=== PATIENT | female | born 1985 | race African-American/Black ===

== ENCOUNTER 2020-06-24 16:07 | Emergency (ER) | payer BC, SELFPAY ==
--- NOTE | ~2020-06-24 | XR_ITS ---
XR chest 2V DATE: 06/24/2020 16:55 INDICATION: Midsternal chest pain for one day. Smoker. TECHNIQUE: PA and lateral views COMPARISON: None FINDINGS: Normal heart size. No hilar or mediastinal enlargement. No pulmonary infiltrate or consolidation, pleural effusion or pulmonary vascular congestion or pneumo thorax. IMPRESSION: No active cardiopulmonary disease Reviewed, dictated and finalized at location A. R SECURITY CONSULTANT
--- NOTE | 2020-06-24 16:08 | ECG_ITS ---
Measurements Intervals [place] Rate: 99 P: 59 DE: 145 QRS: 32 QRSD: 86 T: 18 QT: 356 QTc: 458 Interpretive Statements SINUS RHYTHM ST ELEVATION IN DIFFUSE LEADS- CONSIDER PERICARDITIS OR EARLY REPOLARIZATION ABNORMALITY BASELINE WANDER- I, II, III, AVF ABNORMAL ECG Electronically Signed On 06-24-2020 16:32:03 TRAINING ADMINISTRATOR by Callum Katz D.O.
[2020-06-24 16:09] VITALS: BP 138/87; PULSE 100; RESP 20; TEMP 36.3; O2SAT 98
[2020-06-24 16:38] LABS: Basophils Absolute Auto 0.1 K/mm3 (0.0-0.1); Basophils Percent Auto 0.7 % (0.2-1.2); Eosinophils Absolute Auto 0.2 K/mm3 (0-0.3); Eosinophils Percent Auto 2.1 % (0-4.4); Hematocrit 43.3 % (37.0-47.0); Hemoglobin 14.3 g/dL (12.0-15.0); Immature Granulocyte Absolute 0.04 K/mm3 (0.00-0.031); Immature Granulocyte Percent A 0.4 % (0-0.5); Lymphocytes Absolute Auto 2.25 K/mm3 (0.9-3.2); Mean Corpuscular Hemoglobin 29.5 pg (26-34); Mean Corpuscular Volume 89.5 fl (80-100); Mean Platelet Volume 9.6 fl (7.4-10.4); Monocytes Absolute Auto 0.5 K/mm3 (0.1-0.6); Neutrophils Absolute Auto 5.9 K/mm3 (1.3-6.7); Neutrophils Percent Auto 65.8 % (45.5-73.1); Platelet Count Result 308 k/mm3 (150-375); Red Blood Count 4.84 M/mm3 (4.2-5.4); Red Cell Distribution Width 13.1 % (11.5-14.5)
[2020-06-24 16:49] LABS: Anion Gap 12 mmol/L (8-16); Blood Urea Nitrogen 7 mg/dL (7-17); Calcium 9.3 mg/dL (8.4-10.2); Carbon Dioxide 24 mmol/L (22-30); Chloride 103 mmol/L (98-107); Estimated CRCL calculation 128 ml/min; Estimated Glomerular Filt Rate > 60; Glucose 246 mg/dL (65-105); Sodium 139 mmol/L (137-145)
[2020-06-24 16:57] LABS: INR 0.9; Partial Thromboplastin Time 25.5 SECONDS (22.3-36.8); Prothrombin Time 12.9 Seconds (11.1-14.7)
[2020-06-24 17:01] LABS: Troponin I < 0.012 ng/mL (0.000-0.034)
--- NOTE | 2020-06-24 17:05 | ED.CHESTPAIN ---
HPI - Chest Pain General Chief Complaint: Chest Pain Stated Complaint: SOB Time Seen by Provider: 06/24/20 16:52 Source: patient Mode of arrival: ambulatory Limitations: no limitations History of Present Illness HPI narrative: This is a 35 year old female with history of DM, smoking who presents for evaluation midsternal chest pain. This pain started suddenly at noon today while she was watching TV. She describes pain as tightness and sharp. She has sharp pain when she takes a deep breath. She states pain radiates to her back and it is associated with nausea. She is sob because it hurts to take a deep breath. she denies URI symptoms, cough or fever. She denies vomiting or diarrhea but states she feels like diarrhea would help her feel better. She denies history of signs of DVT. Related Data Home Medications Medication Instructions Recorded Confirmed empagliflozin [Jardiance] mg 06/24/20 levothyroxine 06/24/20 liraglutide [Victoza 2-[place]] mg SUBCUT 06/24/20 metformin mg PO 06/24/20 rosuvastatin mg 06/24/20 spironolactone 06/24/20 Allergies Allergy/AdvReac Type Severity Reaction Status Date / Time No Known Allergies Allergy Verified 06/24/20 18:43 Review of Systems Review of Systems: All systems reviewed & are unremarkable except as noted in HPI and below Constitutional: Constitutional: Denies chills and Denies fever(s) ENT: Denies dizziness and Denies nasal congestion Cardiovascular: Cardiovascular: Reports chest pain Respiratory: Respiratory: Denies cough, Reports dyspnea and Denies wheezing Gastrointestinal: Gastrointestinal: Reports abdominal pain, Denies diarrhea, Reports nausea and Denies vomiting [facility] Past Medical History Medical History (Updated 06/25/20 @ 00:00 by [facility] [place]) Diabetes mellitus Surgical History Surgical History (Updated 06/24/20 @ 17:07 by Yvonne Reyes MD) H/O thyroidectomy Social History Social History (Updated 06/24/20 @ 17:07 by Yvonne Reyes MD) Smoking packs per day: 0.5 Smoking cigarettes per day: 10.0 Smoking status: Current every day smoker Alcohol intake: never Substance use type: marijuana Gender identity (if verbalized by the patient): Female Exam Const: General: no acute distress and alert Orientation/consciousness: patient oriented x3 Eyes: EOM: EOMs intact bilaterally Resp: Effort & Inspection: normal respiratory effort and no retractions Auscultation: clear to auscultation bilaterally Cardio: Rate: regular rate Rhythm: regular rhythm Heart sounds: no murmurs GI: GI Palp: Yes Soft to palpation, Yes Tenderness to palpation present (GI) (epigastric) and Yes Guarding due to palpation present (GI) Auscultation: normal bowel sounds Back/Spine/Pelvis: Back: no CVA tenderness Skin: General skin exam: normal color Rashes: no rashes Neuro: General: patient oriented x3 and moves all extremities Course Reevaluation(s) Reevaluation #1: Patient states that her chest pain has resolved. She does not feel the pain any more. I Discussed labs abnormality. She is awaiting a 3 hour troponin and she will be treated for a UTI. Date: 06/24/20 Time: 19:15 Vital Signs Vital signs: Vital Signs Temperature 97.4 F L 06/24/20 16:09 Pulse Rate 100 06/24/20 16:09 Respiratory Rate 20 06/24/20 16:09 Blood Pressure 138/87 06/24/20 16:09 Pulse Oximetry 98 06/24/20 16:09 Temperature 97.8 F 06/24/20 20:32 Pulse Rate 94 06/24/20 20:32 Respiratory Rate 16 06/24/20 20:32 Blood Pressure 144/92 H 06/24/20 20:32 Pulse Oximetry 98 06/24/20 20:32 MDM - Chest Pain Lab Data Attestation: I reviewed the patient's lab results. Result diagrams: 06/24/20 16:33 06/24/20 16:33 Labs: Lab Results 06/24/20 06/24/20 06/24/20 Range/Units 16:33 16:33 16:33 WBC 9.0 (4.5-10.0) K/mm3 RBC 4.84 (4.2-5.4) M/mm3 Hgb 14.3 (12.0-15.0) g/dL Hct 4
[2020-06-24 18:09] LABS: D Dimer 0.32 ug/mL (<0.48)
[2020-06-24 18:10] LABS: Alanine Aminotransferase 66 U/L (4-35); Albumin Level 4.6 g/dL (3.5-5.1); Alkaline Phosphatase 140 U/L (38-126); Aspartate Amino Transferase 158 U/L (14-36); Bilirubin,Total 1.3 mg/dL (0.2-1.3); CRP 1.9 mg/dL (<1.0); Lipase 188 U/L (23-300)
[2020-06-24] MEDS: KETOROLAC 30 MG/ML VIAL (*BKC) IV PUSH (18:40)
[2020-06-24] MEDS: ONDANSETRON INJ 4 MG/2 ML VIAL IV PUSH (18:40)
[2020-06-24 18:45] VITALS: BP 139/90; PULSE 94; RESP 18; TEMP 36.8; O2SAT 99
[2020-06-24 18:48] LABS: Add Urine Microscopic? YES; Appearance Urine Cloudy (Clear); Bilirubin Urine Negative (Negative); Blood Urine Negative (Negative); Color Urine Yellow (Yellow); Glucose Urine UA 3+ mg/dL (Negative); Ketones Urine 1+ mg/dL (Negative); Leukocyte Esterase Ur Trace LEU/UL (Negative); Mucus Urine Rare /lpf; Nitrate Urine Positive (Negative); Protein Urine Negative (Negative); RBC Urine 0-2 /hpf (0-2); Squamous Epithelial Cell Urine Moderate /hpf (Few); Urobilinogen Urine Negative mg/dL (<2.0); WBC Urine 31-50 /hpf
[2020-06-24 19:00] LABS: Specific Grav Ur 1.036 (1.001-1.035)
[2020-06-24] MEDS: CEPHALEXIN 500 MG CAPSULE PO (19:50)
[2020-06-24 19:52] VITALS: BP 138/87; PULSE 86; RESP 16; O2SAT 98
[2020-06-24 19:57] LABS: Troponin I < 0.012 ng/mL (0.000-0.034)
[2020-06-24 20:32] VITALS: BP 144/92; PULSE 94; RESP 16; TEMP 36.6; O2SAT 98
== END 2020-06-24 20:32 | disposition home or self-care (01) ==
PROVIDERS: Emergency Medicine; Emergency Provider General Practice
DX: R07.89 Other chest pain (principal); N39.0 Urinary tract infection, site not specified; E11.65 Type 2 diabetes mellitus with hyperglycemia; F17.210 Nicotine dependence, cigarettes, uncomplicated; Z79.84 Long term (current) use of oral hypoglycemic drugs; E89.0 Postprocedural hypothyroidism; R93.1 Abnormal findings on diagnostic imaging of heart and coronary circulation; R94.31 Abnormal electrocardiogram [ECG] [EKG]
CPT/HCPCS: 36415; 71046; 80048; 80076; 81001; 81025; 83690; 84484; 85025; 85380; 85610; 85730; 86140; 87077; 87086; 87088; 87186; 93005; 96374; 96375; 99284; A9270; J1885; J2405

== ENCOUNTER 2022-08-10 08:02 | Emergency (ER) | payer BC, SELFPAY ==
[2022-08-10 08:15] VITALS: BP 145/96; PULSE 95; RESP 16; TEMP 37; O2SAT 99
--- NOTE | 2022-08-10 08:22 | ED.GENADULT ---
HPI - General Adult General Chief complaint: Skin/Abscess/Foreign Body Stated complaint: BUMPS UNDER ARMS Time Seen by Provider: 08/10/22 08:16 Source: patient Mode of arrival: ambulatory Limitations: no limitations History of Present Illness HPI narrative: 37-year-old female presented for complaint of ?lumps? to the underarm areas worsening over the past few days. She states the right underarm lump is larger and more tender. The left underarm has a few smaller nontender lumps that itch. Endorses she started using a new deodorant which caused irritation and itching after about one week of use. She then had a sore area and believes this has turned into an infection or boil. She has stopped using the deodorant. She rates pain about 4/10. Has been using warm compresses. Has not required anything for pain. Denies drainage to the site. Denies any other locations of skin changes. Related Data Home Medications Medication Instructions Recorded Confirmed levothyroxine 137 mcg tablet 137 mcg PO DAILY 06/24/20 08/10/22 Allergies Allergy/AdvReac Type Severity Reaction Status Date / Time No Known Allergies Allergy Verified 08/10/22 08:30 Review of Systems Review of Systems: CONSTITUTIONAL: Denies body aches, fever, chills, or sweats. EYES: Denies visual changes, redness, or discharge. ENT: Denies rhinorrhea, congestion CARDIOVASCULAR: Denies chest pain, palpitations, or edema. RESPIRATORY: Denies cough or dyspnea. GASTROINTESTINAL: Denies abdominal pain, nausea, vomiting, or diarrhea. SKIN: per HPI MUSCULOSKELETAL: Denies back pain, joint pain, or myalgia. NEUROLOGIC: Denies headache, numbness, tingling, or weakness. [facility] Past Medical History Medical History Diabetes mellitus Surgical History Surgical History H/O thyroidectomy Social History Social History Smoking packs per day: 0.5 Smoking cigarettes per day: 10.0 Smoking status: Current every day smoker Alcohol intake: never Substance use type: marijuana Gender identity (if verbalized by the patient): Female Comments At time of signature, I have reviewed and agree with nursing past medical, surgical, social and family history unless otherwise noted. Please see nursing chart for further information. There is no relevant family history pertinent to the presenting complaint Exam Narrative: GENERAL: Well-appearing HEAD: Normocephalic, atraumatic. EYES: conjunctivae clear, and EOMI. ENT: Mucous membranes moist. Oropharynx without edema, erythema or lesions. NECK: Supple. No lymphadenopathy CHEST: Clear to auscultation. HEART: Regular rate and rhythm. SKIN: Warm, dry. Right axilla with approx 3cmx1.5cm raised erythematous tender abscess, small area of fluctuance at center, no active drainage. Appears to have multiple firm abscesses forming one at this site. Also with approx 1cm diameter raised tender abscess without fluctuance just laterally to larger site. Left axilla with few scattered nodules less than 0.5cm diameter, nontender. NEURO: Alert and oriented x3. Course Course Emergency Course: Patient is aware of diagnosis, understands and agrees to treatment plan. Anticipatory guidance given. Patient agrees to follow-up as directed and is aware of reasons to seek care at the emergency department. Portions of this record may have been created with voice recognition software Level of Care: Express Care Visit Vital Signs Vital signs: Vital Signs Temperature 98.6 F 08/10/22 08:15 Pulse Rate 95 08/10/22 08:15 Respiratory Rate 16 08/10/22 08:15 Blood Pressure 145/96 H 08/10/22 08:15 Pulse Oximetry 99 08/10/22 08:15 Temperature 98.6 F 08/10/22 08:15 Pulse Rate 95 08/10/22 08:15 Respiratory Rate 16 08/10/22 08:15 Blood Pressure 145/96 H
--- NOTE | 2022-08-16 12:31 | PC.NURSE ---
FINAL ANAEROBIC CULTURE: NO ANAEROBES ISOLATED. FINAL AEROBIC CULTURE: ISOLATE 1: HEAVY GROWTH OF STAPHYLOCOCCUS AUREUS PT WAS GIVEN RX FOR DOXYCYCLINE PER RYANNE FERRERA, BE[employer] BU[employer]DER AND [facility] NO CHANGE IN TREATMENT NEEDED.
== END 2022-08-10 09:12 | disposition home or self-care (01) ==
PROVIDERS: Emergency Provider Nurse Practitioner Family
DX: L02.411 Cutaneous abscess of right axilla (principal); E11.9 Type 2 diabetes mellitus without complications; F17.210 Nicotine dependence, cigarettes, uncomplicated; E89.0 Postprocedural hypothyroidism
CPT/HCPCS: 10060; 87070; 87075; 87147; 87181; 87186; 87205; 99213; G0463

== ENCOUNTER 2023-12-29 15:09 | Emergency (ER) | payer OTHER, SELFPAY ==
[2023-12-29 15:24] VITALS: BP 139/89; PULSE 100; RESP 16; TEMP 36.8; O2SAT 100
--- NOTE | 2023-12-29 16:30 | ED.DENTAL ---
HPI - Dental/Oral General Chief complaint: Dental/Oral Stated complaint: Toothache Source: patient Mode of arrival: ambulatory History of Present Illness HPI Narrative: 38-year-old female presented for complaint of right upper and lower dental pain for about 1 week. She states she needs a root canal, has cavities, but has not been able to see the dentist due to finances. Endorses to the sensitivity, and pain with closing by mouth. She is taking Tylenol and ibuprofen without significant improvement. Denies facial swelling, difficulty swallowing, nausea, vomiting, fevers or chills. MD Complaint: tooth pain Related Data Home Medications Medication Instructions Recorded Confirmed acetaminophen 325 mg capsule mg 12/29/23 (Tylenol) ibuprofen 12/29/23 Allergies Allergy/AdvReac Type Severity Reaction Status Date / Time No Known Allergies Allergy Verified 08/10/22 08:30 Review of Systems Review of Systems: CONSTITUTIONAL: Denies body aches, fever, chills ENT: Denies rhinorrhea, congestion, sore throat, or otalgia. Reports dental pain CARDIOVASCULAR: Denies chest pain, palpitations RESPIRATORY: Denies cough or dyspnea. SKIN: Denies rash, itching, or wounds. MUSCULOSKELETAL: Denies myalgia. NEUROLOGIC: Denies headache, numbness, tingling, or weakness. [facility] Past Medical History Medical History Diabetes mellitus Surgical History Surgical History H/O thyroidectomy Social History Social History Smoking packs per day: 0.5 Smoking cigarettes per day: 10.0 Smoking status: Current every day smoker Alcohol intake: never Substance use type: marijuana Gender identity (if verbalized by the patient): Female Comments At time of signature, I have reviewed and agree with nursing past medical, surgical, social and family history unless otherwise noted. Please see nursing chart for further information. There is no relevant family history pertinent to the presenting complaint Exam Narrative: GENERAL: Appears in pain; no acute distress. HEAD: Normocephalic, atraumatic. EYES: EOMI. No redness or drainage. Conjunctivae normal. ENT: Dental pain location of #2 on top right and #30-31 bottom right; teeth with cavities. No gum erythema or significant swelling, but reports tender with palpation. No facial swelling. Mucous membranes pink and moist. TMs normal bilaterally. Throat normal. no dysphagia, odynophagia, dysphonia, or dyspnea. No uvular deviation or soft palate edema. NECK: Normal AROM. No lymphadenopathy.no induration below mandible, no neck pain. CHEST: No respiratory distress. Clear to auscultation. HEART: Regular rate and rhythm. SKIN: Warm, dry, Normal skin turgor. NEURO: No focal deficits. Alert and oriented x3. Course Course Emergency Course: Patient is aware of diagnosis, understands and agrees to treatment plan. Anticipatory guidance given. Patient agrees to follow-up as directed and is aware of reasons to seek care at the emergency department. Portions of this record may have been created with voice recognition software Level of Care: Express Care Visit Vital Signs Vital signs: Vital Signs Temperature 98.2 F 12/29/23 15:24 Pulse Rate 100 12/29/23 15:24 Respiratory Rate 16 12/29/23 15:24 Blood Pressure 139/89 12/29/23 15:24 Pulse Oximetry 100 12/29/23 15:24 Temperature 98.2 F 12/29/23 15:24 Pulse Rate 100 12/29/23 15:24 Respiratory Rate 16 12/29/23 15:24 Blood Pressure 139/89 12/29/23 15:24 Pulse Oximetry 100 12/29/23 15:24 MDM - Dental/Oral MDM Narrative Medical decision making narrative: Patients pain and complaint coupled with physical findings are consistent with dentalgia. There are no focal signs of space occupying lesions that are compromising to
== END 2023-12-29 16:39 | disposition home or self-care (01) ==
PROVIDERS: Emergency Provider Nurse Practitioner Family
DX: K08.89 Other specified disorders of teeth and supporting structures (principal); E11.9 Type 2 diabetes mellitus without complications; F17.210 Nicotine dependence, cigarettes, uncomplicated; F12.90 Cannabis use, unspecified, uncomplicated
CPT/HCPCS: 99213; G0463

== ENCOUNTER 2024-03-08 15:23 | Emergency (ER) | payer OTHER, SELFPAY ==
[2024-03-08 15:28] VITALS: BP 176/88; PULSE 84; RESP 16; TEMP 36.4; O2SAT 100
--- NOTE | 2024-03-08 15:49 | ED_ITS ---
HPI - Dental/Oral General Chief complaint: Dental/Oral Stated complaint: toothache Time Seen by Provider: 03/08/24 15:30 Source: patient Mode of arrival: ambulatory Limitations: no limitations History of Present Illness HPI Narrative: This is a 39-year-old female that presents to the emergency department for dentalgia. Ongoing over the last couple of days. She was prescribed an antibiotic, started taking it last night. She has been taking Tylenol and ibuprofen with little relief. Denies fevers, erythema, edema. MD Complaint: tooth pain Location: Tooth # (5 and 31) Related Data Home Medications Medication Instructions Recorded Confirmed acetaminophen 325 mg capsule mg 12/29/23 (Tylenol) ibuprofen 12/29/23 Allergies Allergy/AdvReac Type Severity Reaction Status Date / Time No Known Allergies Allergy Verified 03/08/24 15:32 Review of Systems Review of Systems: CONSTITUTIONAL: Denies fever ENT: Reports dentalgia All systems reviewed & are unremarkable except as noted in HPI and below PMFSH Past Medical History Medical History Diabetes mellitus Surgical History Surgical History H/O thyroidectomy Social History Social History Smoking packs per day: 0.5 Smoking cigarettes per day: 10.0 Smoking status: Current every day smoker Alcohol intake: never Substance use type: marijuana Gender identity (if verbalized by the patient): Female Exam Narrative: GENERAL: Well-appearing, well-nourished, and in no acute distress. HEAD: Normocephalic, atraumatic. EYES: EOMI. ENT: Nares clear, no rhinorrhea or epistaxis. Mucous membranes moist. Oropharynx without tonsillar hypertrophy exudate or other lesions. Tooth #5 and 31 tender to palpation. No surrounding erythema or fluctuance to suggest abscess. Floor of mouth is soft. No trismus NECK: Supple. No adenopathy or masses. CHEST: No respiratory distress. HEART: Regular rate EXTREMITIES: Normal range of motion. No edema. SKIN: Warm, dry, no rash. NEURO: No focal deficits. Alert and oriented x3. PSYCH: Normal mood and affect Course Course Emergency Course: patient agrees with plan of care Vital Signs Vital signs: Vital Signs Temperature 97.5 F L 03/08/24 15:28 Pulse Rate 84 03/08/24 15:28 Respiratory Rate 16 03/08/24 15:28 Blood Pressure 176/88 H 03/08/24 15:28 Pulse Oximetry 100 03/08/24 15:28 Oxygen Delivery Room Air 03/08/24 15:28 Temperature 97.5 F L 03/08/24 15:28 Pulse Rate 84 03/08/24 15:28 Respiratory Rate 16 03/08/24 15:28 Blood Pressure 176/88 H 03/08/24 15:28 Pulse Oximetry 100 03/08/24 15:28 Oxygen Delivery Room Air 03/08/24 15:28 MDM - Dental/Oral MDM Narrative Medical decision making narrative: patient presents to the emergency department for dentalgia. No abscess noted on exam. She is on antibiotics, but just started taking these last night. Instructed to continue these as prescribed. Will be given prescription for anti-inflammatory. She is to follow up with her dentist. She was given warnings to return to the ER Differential Diagnosis Differential diagnosis: Likely dental caries, toothache and dental abscess Critical Care Time Critical Care Time Critical Care Time: No Discharge Plan Discharge Clinical Impression: Toothache Patient Disposition: Home, Self-Care Condition: Stable Instructions: Antibiotic Form, Toothache (ED) Additional Instructions: Return to the Emergency Department if you experience fever >101, increasing swelling and redness of your tooth, or any other symptoms that are concerning to you Take antibiotic as prescribed. Tylenol or Toradol as needed for pain. If you take Toradol, do not take other anti-inflammatories ( Aleve, ibuprofen, naproxen, etc) Follow up with your dentist Prescriptions: New ketorolac 10 mg tablet 10 mg PO Q8H PRN (Reason: pain) 5 Days Qty: 14 0RF Rx Instructions: maximum total duration of 5 days from all oral, intranasal, or parenteral formulations No Action acetaminophen [Tylenol] 325 mg Capsule ibuprofen ibuprofen 800 mg tablet 800 mg PO TID PRN (Reason: pain) Qty: 15 0RF lidocaine HCl [Lidocaine Viscous] 2 % solution 1 applic mucous membrane TID PRN (Reason: pain) Qty: 100 0RF Rx Instructions: apply with cotton swab to site of pain amoxicillin-pot clavulanate 875-125 mg tablet 1 tablet PO Q12H 7 Days Qty: 14 0RF Follow-up/Referrals: PHYSICIAN,MEDICAL BILLING SERVICE [Primary Care Provider] -
[2024-03-08] MEDS: HYDROcodone/acetaminophen (*CRX) 5-325 MG TABLET 1 TAB PO (15:55)
[2024-03-08 16:07] VITALS: BP 149/88; PULSE 80; RESP 14; O2SAT 99
== END 2024-03-08 16:08 | disposition home or self-care (01) ==
PROVIDERS: Emergency Provider Physician Assistant
DX: K08.89 Other specified disorders of teeth and supporting structures (principal); E11.9 Type 2 diabetes mellitus without complications; E89.0 Postprocedural hypothyroidism; F17.210 Nicotine dependence, cigarettes, uncomplicated
CPT/HCPCS: 99283; A9270